=== PATIENT | female | born 1945 | race Caucasian/White ===

== ENCOUNTER 2016-06-27 14:04 | Inpatient (IN) ==
--- NOTE | 2016-06-27 15:16 | XRay Report ---
XR chest 1V Indication: Dizziness Comparison: None available Findings: The heart and mediastinum are normal in size and configuration. The pulmonary vascularity is normal in caliber. There is increased right midlung density. No other lung infiltrates, effusions, pneumothorax or other abnormality is demonstrated. Impression: Increased right midlung density, could indicate infiltrate. PROCEDURE INTERPRETED AT [facility] DEPARTMENT OF RADIOLOGY Final Report Signed by: Dr. Toby Walsh
--- NOTE | 2016-06-27 15:44 | Hospitalist History & Physical ---
<Fuad Ac - Last Filed: 06/27/16 15:57> Assessment and Plan (1) Hypertension Status: Acute Assessment and plan: Restart patient's home medicines. Monitor bp; pt currently stable at present. Current Visit: Yes (2) Diabetes Status: Acute Assessment and plan: Pt is diet controlled. Will order an A1c. Accuchecks achs. Diabetic diet. Current Visit: Yes (3) Closed right hip fracture Status: Acute Current Visit: Yes History of Present Illness Chief complaint: fall History of present illness: Ms. Benavidez is a 71 year old female with a history of htn, diet controlled diabetes, migrane, pneumonia and stomach lesion that presents to the ED for evaluation after a fall. She is a transfer from [facility]. Pt. states that she has been having frequent falls this week due to an inner ear infection. She was seen yesterday by Dr. Fagan and was prescribed some medication. Pt. states she got up to use the bathroom this morning around 2 am and fell on her right hip. Pt. denies hitting her head. Pt does having to having bruises on skin from recent falls. Pt. denies having any chest pain, shortness of breath, vomiting, diarrhea, or vision loss. Pt. states that she was slightly nauseous earlier today. Pt. denies any other issues in the ED at this time. Pt. will be admitted to the hospitalist service. Surgery will be consulted. Home Medications Medication Instructions Recorded Confirmed Type ALPRAZolam [Alprazolam] 1 mg PO DAILY PRN 06/27/16 06/27/16 History Cetirizine HCl [Cetirizine Tab] 10 mg PO DAILY 06/27/16 06/27/16 History Diazepam Tab [Valium Tab] 2 mg PO Q6H PRN 06/27/16 06/27/16 History HYDROcodone/ACETAMIN 7.5-325 1 tablet PO DAILY PRN 06/27/16 06/27/16 History [[place] 7.5-325] Methocarbamol Tab [Robaxin Tab] 500 mg PO TID PRN 06/27/16 06/27/16 History Propranolol Tab [Inderal Tab] 20 mg PO BID 06/27/16 06/27/16 History Zolpidem Tartrate [Ambien] 10 mg PO BEDTIME 06/27/16 06/27/16 History hydroCHLOROthiazide 25 mg PO QAM 06/27/16 06/27/16 History [Hydrochlorothiazide] Allergies Allergy/AdvReac Type Severity Reaction Status Date / Time Penicillins Allergy RASH Unverified 06/27/16 14:08 Medical,Surgical,& Family Hx - Medical History Cardio: History of: Hypertension Neurology: History of: Migraine Endocrine: History of: Diabetes Mellitus (NIDDM) - Family History Family History: noncontributory - Social History Smoking Status: Never smoker Frequency of Alcohol Use: None Type of Drug Use: None Marital Status: Lives With:: Spouse Functional capacity: independent ambulation - Constitutional Constitutional: Present: frequent falls, headache(s), weakness. Absent: fatigue - EENT Eyes: Absent: blurry vision Ears: Absent: decreased hearing Nose, mouth and throat: Present: headache(s). Absent: dysphagia - Cardiovascular Cardiovascular: Present: edema. Absent: chest pain at rest, dyspnea - Respiratory Respiratory: Absent: cough, wheezing - Gastrointestinal Gastrointestinal: Present: nausea. Absent: abdominal pain, vomiting - Genitourinary Genitourinary: Absent: dysuria, urinary frequency - Musculoskeletal Musculoskeletal: Present: limited range of motion, muscle cramps - Neurological Neurological: Absent: confusion, dizziness - Psychiatric Psychiatric: Absent: anxiety, confusion - Endocrine Endocrine: Present: cold intolerance Exam - Constitutional Vitals: Period Temp Pulse Resp BP Sys/Babb Pulse Ox Last 24 Hr 97.5 F 82 20 133/79 93 General appearance: normal weight, no acute distress - Head Head exam: Present: normal inspection, normocephalic - Eye Eye exam: Present: EOMI. Absent: scleral icterus Pupils: Present: COLE. Absent: dilated - Neck Neck exam: Present: normal inspection. Absent: thyromegaly - Respiratory Respiratory exam: Present: clear to auscultation bilaterally. Absent: rhonchi - Cardiovascular Cardiovascular exam: Present: regular rate and rhythm - GI/Abdominal GI/Abdominal exam: Present: normal bowel sounds, soft. Absent: tenderness - Extremities Exam Extremities exam: Present: normal capillary refill. Absent: full ROM, edema - Neurological Exam Neurological exam: Present: alert, oriented X3. Absent: normal gait - Psychiatric Psychiatric exam: Present: normal affect, normal mood - Skin Skin exam: Present: normal color, warm, dry <Lai,Hilaria - Last Filed: 06/27/16 16:32> Assessment and Plan - Time spent with patient Time spent with patient: Greater than 30 minutes (35 minutes) (1) Vertigo Status: Acute Assessment and plan: Continue Antivert. Consider F/U with ENT outpatient. Current Visit: Yes History of Present Illness Chief complaint: right leg pain s/p fall History of present illness: Ms. Benavidez is a 71 year old female with a history of HTN, migranes, DM2 who was recently diagnosed with vertigo currently treated with Valium and Antivert who was walking to the restroom this am around 2AM and stumbled over something on the ground. She fell down on her right side. She was unable to stand. She denies any chest pain, SOB, palpitations, nausea, vomiting, abdominal pain, dysuria, or hematuria. called 911 and she was taken to an OSH where she was diagnosed with hip fracture. She was transferred to [facility] for further evaluation and treatment. We were asked to admit for further evaluation and treatment. A 10-point review of systems was reviewed and was otherwise unremarkable. Medical,Surgical,& Family Hx - Surgical History Abdominal Surgeries: Surgical HX of: Appendectomy, Cholecystectomy Reproductive Surgeries: Surgical HX of;: Hysterectomy - Family History Family History: Reports;: Family Heart Disease (Father- [place]), Additional Family History (dementia, Parkinson's- Mother) - Social History Have you smoked in the last 12 months: No Exam - ENT ENT exam: Present: normal external ear exam (Effusion behind bilateral ear with opacities. Normal landmarks. ), other - Extremities Exam Extremities exam: Present: other (right leg has abducted towards the right and is slightly shorter than right. Good cap refill and sensation is intact.) Results - EKG EKG results: sinus rhythm (70 BPM with RAD and RSR' V1) - Impressions According to the Revised Cardiac Risk Index pt has at most a 0.9% risk of major cardiac event. - Diagnostic Findings Procedure: Chest x-ray: image reviewed by me, report reviewed by me (right middle lobe density. No cardiomegaly)
[2016-06-27 16:13] LABS: Basophils % 0.4 % (0.0-0.8); Eosinophils # 0.1 10*3/uL (0.0-0.87); Eosinophils % 0.9 % (0.00-10.9); Hematocrit 33.6 VOL% (35.7-47.0); Hemoglobin 11.6 GM/DL (12.0-16.0); Immature Granulocytes % 0.5 %; Immature Granulocytes Absolute 0.06 #; Lymphocytes # 1.8 10*3/uL (1.4-4.0); Lymphocytes % 16.3 % (21.3-54.2); Mean Corpuscular HGB Conc 34.5 GM/DL (32-36); Mean Corpuscular Hemoglobin 29 PG (27-34); Mean Corpuscular Volume 83.4 FL (87-102); Mean Platelet Volume 8.2 FL (9.6-12.0); Monocytes # 0.8 10*3/uL (0.11-0.8); Neutrophils # 8.3 10*3/uL (1.4-7.4); Neutrophils % 74.9 % (38.7-73.9); Platelet Count 220 T/CUMM (130-400); Red Blood Count 4.03 MC/CUMM (3.8-5.5); Red Cell Distribution Width 14.6 % (9.3-17.3); White Blood Count 11.1 T/CUMM (4-12)
[2016-06-27 16:22] LABS: PT Patient Result 10.5 SECS
[2016-06-27 16:35] LABS: Albumin 3.2 G/DL (3.4-5.0); Bilirubin,Total 0.6 MG/DL (0.2-1.0); Calcium 8.7 MG/DL (8.5-10.1); Free T4 (Free Thyroxine) 1.14 NG/DL (0.76-1.46); Osmolality,Calculated 258.8 MOS/KG (273-304); Potassium 2.8 MMOL/L (3.5-5.1); Total Protein 5.7 G/DL (6.4-8.3)
[2016-06-27 16:58] LABS: Magnesium 2.1 MG/DL (1.8-2.4); Phosphorous 3.1 MG/DL (2.5-4.9)
[2016-06-27 17:03] LABS: Amorphous Crystals,Urine Occasional /HPF (Few); Apearance,Urine CLEAR (Clear); Bilirubin,Urine Negative (Negative); Blood, Urine Negative (Negative); Glucose,Urine (UA) Negative (Negative); Ketones,Urine Negative (Negative); Mucus,Urine Occasional /LPF (Occasional); Nitrite,Urine Negative (Negative); Protein,Urine Negative; Squamous Epithelial Cell,Urine Occasional /HPF (0-10); Urine Color Yellow (Yellow); Urine Specific Gravity 1.006 (1.001-1.035); Urine Urobilinogen < 2.0 EU/DL (0.2-1.0)
[2016-06-27] MEDS ORDERED: ONDANSETRON 4 MG/2 ML VIAL IV PRN (17:55)
[2016-06-27] MEDS ORDERED: ACETAMINOPHEN 325 MG TABLET PO PRN (17:55)
[2016-06-27] MEDS ORDERED: DOCUSATE SODIUM 100 MG CAPSULE PO PRN (17:55)
[2016-06-27] MEDS ORDERED: GLUCAGON 1 MG VIAL IM PRN (17:55)
[2016-06-27] MEDS ORDERED: POTASSIUM CHLORIDE 20 MEQ TABLET PO PRN (17:55)
[2016-06-27] MEDS ORDERED: DEXTROSE 50% 25 GM/50 ML VIAL IV PRN (17:55)
[2016-06-27] MEDS: SODIUM CHLORIDE 0.9% 1,000 ML IV SCH (18:25)
[2016-06-27] MEDS: ENOXAPARIN 40 MG/0.4 ML SYRINGE SUBCUT SCH (21:11)
[2016-06-27] MEDS: PROPRANOLOL 20 MG TABLET PO SCH (21:15)
[2016-06-27] MEDS: ZALEPLON 5 MG CAPSULE PO SCH (21:16)
[2016-06-28 06:48] LABS: Basophils % 0.4 % (0.0-0.8); Eosinophils # 0.2 10*3/uL (0.0-0.87); Eosinophils % 1.5 % (0.00-10.9); Hematocrit 31.6 VOL% (35.7-47.0); Hemoglobin 10.6 GM/DL (12.0-16.0); Immature Granulocytes % 0.6 %; Immature Granulocytes Absolute 0.06 #; Lymphocytes # 1.4 10*3/uL (1.4-4.0); Lymphocytes % 14.2 % (21.3-54.2); Mean Corpuscular HGB Conc 33.5 GM/DL (32-36); Mean Corpuscular Hemoglobin 28 PG (27-34); Mean Corpuscular Volume 83.6 FL (87-102); Mean Platelet Volume 8.8 FL (9.6-12.0); Monocytes # 0.6 10*3/uL (0.11-0.8); Monocytes % 5.9 % (1.7-12.7); Neutrophils # 7.8 10*3/uL (1.4-7.4); Neutrophils % 77.4 % (38.7-73.9); Platelet Count 199 T/CUMM (130-400); Red Blood Count 3.78 MC/CUMM (3.8-5.5); Red Cell Distribution Width 14.6 % (9.3-17.3); White Blood Count 10.1 T/CUMM (4-12)
[2016-06-28 07:18] LABS: PT Patient Result 11.1 SECS
[2016-06-28 07:23] LABS: Albumin 2.9 G/DL (3.4-5.0); Calcium 8.2 MG/DL (8.5-10.1); Osmolality,Calculated 261.7 MOS/KG (273-304); Phosphorous 3.4 MG/DL (2.5-4.9); Potassium 2.9 MMOL/L (3.5-5.1)
[2016-06-28 07:24] LABS: Calcium 8.3 MG/DL (8.5-10.1); Magnesium 2.1 MG/DL (1.8-2.4); Osmolality,Calculated 261.7 MOS/KG (273-304)
--- NOTE | 2016-06-28 07:36 | EKG Report ---
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
[2016-06-28] MEDS ORDERED: VANCOMYCIN INJ 1,000 MG in SODIUM CHLORIDE 0.9% 250 ML IV ONE (07:58)
--- NOTE | 2016-06-28 07:58 | Orthopedic Consult Note ---
History of Present Illness Chief complaint: Right hip pain History of present illness: Ms. Benavidez is a 71 year old female who sustained a fall 2 nights ago. Stated this is a mechanical trip and fall. helped her into bed, she is unable to ambulate the next morning and EMS took her to [facility] where x-rays were taken showing a displaced right femoral neck fracture [facility]. She denies numbness or tingling. Denies loss of consciousness or head trauma. Complains of significant right hip pain which gets up to a 10/10 with motion or when she attempted to bear weight on her right upper extremity. She denies any other complaints. She typically ambulates without any assistive devices. Home Medications Medication Instructions Recorded Confirmed Type ALPRAZolam [Alprazolam] 1 mg PO DAILY PRN 06/27/16 06/27/16 History Cetirizine HCl [Cetirizine Tab] 10 mg PO DAILY 06/27/16 06/27/16 History Diazepam Tab [Valium Tab] 2 mg PO Q6H PRN 06/27/16 06/27/16 History HYDROcodone/ACETAMIN 7.5-325 1 tablet PO DAILY PRN 06/27/16 06/27/16 History [[place] 7.5-325] Methocarbamol Tab [Robaxin Tab] 500 mg PO TID PRN 06/27/16 06/27/16 History Propranolol Tab [Inderal Tab] 20 mg PO BID 06/27/16 06/27/16 History Zolpidem Tartrate [Ambien] 10 mg PO BEDTIME 06/27/16 06/27/16 History hydroCHLOROthiazide 25 mg PO QAM 06/27/16 06/27/16 History [Hydrochlorothiazide] Allergies Allergy/AdvReac Type Severity Reaction Status Date / Time Penicillins Allergy RASH Unverified 06/27/16 14:08 12 point system: reviewed and no additional remarkable complaints except as stated Medical,Surgical,& Family Hx - Medical History Cardio: History of: Hypertension Psychological: History of: Depression Neurology: History of: Migraine HEENT: History of: Eye Problem (reading and prescription glasses) Endocrine: History of: Diabetes Mellitus (NIDDM) Musculoskeletal: No history of: Amputation - Surgical History Cardiac Surgeries: Patient Denies: Femoral-Popliteal Bypass Graft, Cardiac Catheterization, Cardiac Surgery, Carotid Endarterectomy, Internal Defibrillator, Vascular Access Devices Thoracic Surgeries: Patient denies;: Organ Transplant, Lobectomy Neurologic Surgeries: Patient denies: Neurologic Surgery HEENT Surgeries: Patient denies: Carotid Endarterectomy, Eye Surgery, Thyroid Surgery, Tonsilectomy & Adenoidectomy Abdominal Surgeries: Surgical HX of: Appendectomy, Cholecystectomy Patient denies: Splenectomy Reproductive Surgeries: Surgical HX of;: Hysterectomy, Tubal Ligation Orthopedic Surgeries: Patient denies;: Implanted Devices, Orthopedic Surgery (scheduled in the AM) , Spinal Surgery, Total Hip Replacement, Total Knee Replacement - Family History Family History: Reports;: Family Diabetes (Father), Family Heart Disease (Father - [place]), Additional Family History (dementia, Parkinson's- Mother) - Social History Smoking Status: Never smoker Frequency of Alcohol Use: None Type of Drug Use: None Marital Status: Lives With:: Spouse Functional capacity: independent ambulation Exam - Constitutional Vitals: Period Temp Pulse Resp BP Sys/Babb Pulse Ox Last 24 Hr 97 F-99.1 F 62-76 12-23 131-155/70-77 95-100 General appearance: normal weight, no acute distress - Head Head exam: Present: normal inspection, normocephalic, atraumatic - Eye Eye exam: Present: EOMI Pupils: Present: COLE - ENT ENT exam: Present: normal exam - Neck Neck exam: Present: normal inspection - Respiratory Respiratory exam: Absent: accessory muscle use, wheezes - Cardiovascular Cardiovascular exam: Present: regular rate and rhythm - GI/Abdominal GI/Abdominal exam: Absent: distended, firm - Extremities Exam Extremities exam: Present: other (Bilateral upper extremity: Full active range of motion fingers wrist elbow shoulder. No pain, crepitus, deformity with palpation long bones and joints. Compartments soft. Sensation is intact. Pulses 2+.) - Expanded Right Lower Hip exam: Absent: normal inspection (Right lower extremity: Right leg is notably shorter than the left in the supine position. She is full active range of motion foot and ankle. Cap refill brisk. Pulses 2+ dorsal pedal posterior tibial. Sensation is intact all dermatomes distally. Logrolled not performed due to known fracture) Left Lower Hip exam: Present: normal inspection (Left lower extremity: Nontender to palpation, full active range of motion foot and ankle. Cap refill brisk. Pulses 2+. Sensation intact) - Neurological Exam Neurological exam: Present: alert, oriented X3, CN II-XII intact - Psychiatric Psychiatric exam: Present: normal affect, normal mood - Skin Skin exam: Present: normal color Results - Labs CBC & BMP: 06/28/16 06:38 06/28/16 06:38 Lab Results: I have reviewed the past 24 hour labs - Diagnostic Findings Procedure: X-ray: image reviewed by me, report reviewed by me Assessment and Plan (1) Anemia Status: Acute Current Visit: Yes (2) Closed right hip fracture Status: Acute Assessment and plan: Discussed her right displaced femoral neck fracture and her anemia. Because the fracture is displaced, recommend proceeding with hip replacement. Because of her relatively young age and high activity level I recommend total hip replacement. We discussed the surgery in detail as well as anterior total hip arthroplasty and the dislocation precautions. We discussed the risks and benefits of surgery as well. Benefit of surgery is to be able to ambulate and improve her function decrease her pain. Risks of surgery include but not limited to infection, bleeding, neurovascular injury both local and remote, hardware failure, fracture, need for further surgery, dislocation, leg length inequality , and other unforeseen complications. We also discussed risk of anesthesia include heart attack, stroke, . She gave full understanding to the risks and benefits, and agreed to proceed with surgical intervention with right total hip arthroplasty. We also discussed her anemia and the possibility of her needing blood transfusion following surgery Site was verified with the patient right leg was marked with yes my initials. Because of her allergy to penicillin, we will start vancomycin 1 g as soon as possible to have the antibiotic completed prior to the start of surgery. Current Visit: Yes
[2016-06-28] MEDS: PROPRANOLOL 20 MG TABLET PO SCH ×2 (08:44→20:13)
[2016-06-28] MEDS: CETIRIZINE 10 MG TABLET PO SCH (08:45)
[2016-06-28] MEDS: PANTOPRAZOLE 40 MG TABLET PO SCH (08:45)
--- NOTE | 2016-06-28 08:46 | Discharge Summary ---
Diagnosis - Discharge Diagnosis (1) Anemia Status: Acute (2) Closed right hip fracture Status: Acute Specialty Discharge - Follow Up or Referrals - Speciality Discharge Instructions Orthopedic Instructions: Right hip anterior precautions. Keep dressing intact for 7 days then okay to leave open to air Discharge Plan - Discharge Medications No Action Zolpidem Tartrate [Ambien] 10 mg PO BEDTIME RX: ALPRAZolam [Alprazolam] 1 mg PO DAILY PRN PRN Reason: Anxiety Diazepam Tab [Valium Tab] 2 mg PO Q6H PRN PRN Reason: inner ear Cetirizine HCl [Cetirizine Tab] 10 mg PO DAILY RX: hydroCHLOROthiazide [Hydrochlorothiazide] 25 mg PO QAM HYDROcodone/ACETAMIN 7.5-325 [[place] 7.5-325] 1 tablet PO DAILY PRN PRN Reason: Pain Methocarbamol Tab [Robaxin Tab] 500 mg PO TID PRN PRN Reason: Muscle Spasm Propranolol Tab [Inderal Tab] 20 mg PO BID - Follow Up or Referral Follow Up: Philippe Cadet Jr., MD [Physician] - - Forms/Instructions Exam - Constitutional Vitals: Period Temp Pulse Resp BP Sys/Babb Pulse Ox Last 24 Hr 97 F-99.1 F 62-76 12-23 131-155/70-77 95-100 Discharge Results Procedures and tests throughout hospitalization: Pending Orders 06/28/16 XR hip 2V RT Routine 06/29/16 04:00 Basic Metabolic Panel IN AM Comp Blood Count Auto Diff IN AM Labs on day of discharge: Labs from last 24 hours 06/28/16 06/28/16 06/28/16 06:38 06:38 06:38 WBC RBC Hgb Hct MCV MCH MCHC RDW Plt Count MPV Neut % (Auto) Lymph % (Auto) Coleman % (Auto) Eos % (Auto) Baso % (Auto) Neut # (Auto) Lymph # (Auto) Coleman # (Auto) Eos # (Auto) Baso # (Auto) Immature Gran % Nucleated RBC % Immature Gran # Nucleated RBCs # INR 1.0 PT Patient/Control Mix 11.1 Sodium 131 L Potassium 2.9 L Chloride 93 L Carbon Dioxide 29 Anion Gap 11.9 BUN 11 Creatinine 0.60 GFR Calculation 107 BUN/Creatinine Ratio 18.00 Glucose 108 H POC Glucose Hemoglobin A1c Calculated Osmolality 261.7 L Calcium 8.2 L Phosphorus 3.4 Magnesium Total Bilirubin AST ALT Alkaline Phosphatase B-Natriuretic Peptide 54 Total Protein Albumin 2.9 L Globulin Albumin/Globulin Ratio 25-OH Vitamin D Total Free T4 Urine Color Urine Appearance Urine pH Ur Specific [place] Urine Protein Urine Glucose (UA) Urine Ketones Urine Blood Urine Nitrate Urine Bilirubin Urine Urobilinogen Urine Leukocytes Ur Squamous Epith Cells Amorphous Crystals Urine Mucus Ur Culture Indicated? 06/28/16 06/28/16 06/28/16 06:38 06:38 06:37 WBC 10.1 RBC 3.78 L Hgb 10.6 L Hct 31.6 L MCV 83.6 L MCH 28 MCHC 33.5 RDW 14.6 Plt Count 199 MPV 8.8 L Neut % (Auto) 77.4 H Lymph % (Auto) 14.2 L Coleman % (Auto) 5.9 Eos % (Auto) 1.5 Baso % (Auto) 0.4 Neut # (Auto) 7.8 H Lymph # (Auto) 1.4 Coleman # (Auto) 0.6 Eos # (Auto) 0.2 Baso # (Auto) 0.0 Immature Gran % 0.6 Nucleated RBC % 0.0 Immature Gran # 0.06 Nucleated RBCs # 0.00 INR PT Patient/Control Mix Sodium 131 L Potassium 3.0 L Chloride 93 L Carbon Dioxide 29 Anion Gap 12.0 BUN 11 Creatinine 0.60 GFR Calculation 107 BUN/Creatinine Ratio 18.00 Glucose 108 H POC Glucose Hemoglobin A1c 6.3 Calculated Osmolality 261.7 L Calcium 8.3 L Phosphorus Magnesium 2.1 Total Bilirubin AST ALT Alkaline Phosphatase B-Natriuretic Peptide Total Protein Albumin Globulin Albumin/Globulin Ratio 25-OH Vitamin D Total Free T4 Urine Color Urine Appearance Urine pH Ur Specific [place] Urine Protein Urine Glucose (UA) Urine Ketones Urine Blood Urine Nitrate Urine Bilirubin Urine Urobilinogen Urine Leukocytes Ur Squamous Epith Cells Amorphous Crystals Urine Mucus Ur Culture Indicated? 06/27/16 06/27/16 06/27/16 18:07 16:41 16:06 WBC RBC Hgb Hct MCV MCH MCHC RDW Plt Count MPV Neut % (Auto) Lymph % (Auto) Coleman % (Auto) Eos % (Auto) Baso % (Auto) Neut # (Auto) Lymph # (Auto) Coleman # (Auto) Eos # (Auto) Baso # (Auto) Immature Gran % Nucleated RBC % Immature Gran # Nucleated RBCs # INR PT Patient/Control Mix Sodium Potassium Chloride Carbon Dioxide Anion Gap BUN Creatinine GFR Calculation BUN/Creatinine Ratio Glucose POC Glucose 100 Hemoglobin A1c Calculated Osmolality Calcium Phosphorus Magnesium Total Bilirubin AST ALT Alkaline Phosphatase B-Natriuretic Peptide Total Protein Albumin Globulin Albumin/Globulin Ratio 25-OH Vitamin D Total 11.1 Free T4 Urine Color Yellow Urine Appearance Clear Urine pH 7.0 Ur Specific [place] 1.006 Urine Protein Negative Urine Glucose (UA) Negative Urine Ketones Negative Urine Blood Negative Urine Nitrate Negative Urine Bilirubin Negative Urine Urobilinogen < 2.0 H Urine Leukocytes Negative Ur Squamous Epith Cells Occasional Amorphous Crystals Occasional Urine Mucus Occasional Ur Culture Indicated? Not indicated 06/27/16 06/27/16 06/27/16 16:06 16:06 16:06 WBC RBC Hgb Hct MCV MCH MCHC RDW Plt Count MPV Neut % (Auto) Lymph % (Auto) Coleman % (Auto) Eos % (Auto) Baso % (Auto) Neut # (Auto) Lymph # (Auto) Coleman # (Auto) Eos # (Auto) Baso # (Auto) Immature Gran % Nucleated RBC % Immature Gran # Nucleated RBCs # INR 1.0 PT Patient/Control Mix 10.5 Sodium 130 L Potassium 2.8 L Chloride 91 L Carbon Dioxide 32 Anion Gap 9.8 BUN 9 Creatinine 0.80 GFR Calculation 85 BUN/Creatinine Ratio 11.00 Glucose 104 POC Glucose Hemoglobin A1c Calculated Osmolality 258.8 L Calcium 8.7 Phosphorus 3.1 Magnesium 2.1 Total Bilirubin 0.60 AST 14 ALT 20 Alkaline Phosphatase 94 B-Natriuretic Peptide Total Protein 5.7 L Albumin 3.2 L Globulin 2.5 Albumin/Globulin Ratio 1.2 25-OH Vitamin D Total Free T4 1.14 Urine Color Urine Appearance Urine pH Ur Specific [place] Urine Protein Urine Glucose (UA) Urine Ketones Urine Blood Urine Nitrate Urine Bilirubin Urine Urobilinogen Urine Leukocytes Ur Squamous Epith Cells Amorphous Crystals Urine Mucus Ur Culture Indicated? 06/27/16 16:06 WBC 11.1 RBC 4.03 Hgb 11.6 L Hct 33.6 L MCV 83.4 L MCH 29 MCHC 34.5 RDW 14.6 Plt Count 220 MPV 8.2 L Neut % (Auto) 74.9 H Lymph % (Auto) 16.3 L Coleman % (Auto) 7.0 Eos % (Auto) 0.9 Baso % (Auto) 0.4 Neut # (Auto) 8.3 H Lymph # (Auto) 1.8 Coleman # (Auto) 0.8 Eos # (Auto) 0.1 Baso # (Auto) 0.0 Immature Gran % 0.5 Nucleated RBC % 0.0 Immature Gran # 0.06 Nucleated RBCs # 0.00 INR PT Patient/Control Mix Sodium Potassium Chloride Carbon Dioxide Anion Gap BUN Creatinine GFR Calculation BUN/Creatinine Ratio Glucose POC Glucose Hemoglobin A1c Calculated Osmolality Calcium Phosphorus Magnesium Total Bilirubin AST ALT Alkaline Phosphatase B-Natriuretic Peptide Total Protein Albumin Globulin Albumin/Globulin Ratio 25-OH Vitamin D Total Free T4 Urine Color Urine Appearance Urine pH Ur Specific [place] Urine Protein Urine Glucose (UA) Urine Ketones Urine Blood Urine Nitrate Urine Bilirubin Urine Urobilinogen Urine Leukocytes Ur Squamous Epith Cells Amorphous Crystals Urine Mucus Ur Culture Indicated? DS: Provider Date of admission: 06/27/16 15:24 Primary care physician: . No PCP Attending physician on admission: Hilaria Lai MD Consults: 06/27/16 17:55 Consult to Physician [CONS] Routine Comment: Consulting Provider: Gerry Clement Person Notified: Dr. Clement Date Notified: 06/27/16 Time Notified: 18:05 Discharging clinician: Gerry Clement DO
[2016-06-28] MEDS ORDERED: KETOROLAC 30 MG/1 ML VIAL ONE ×2 (08:50→10:03)
[2016-06-28] MEDS ORDERED: ETOMIDATE 20 MG/10 ML VIAL IV ONE (08:50)
[2016-06-28] MEDS ORDERED: LIDOCAINE 2% 5 ML VIAL ONE (08:50)
[2016-06-28] MEDS ORDERED: PHENYLEPHRINE 1 MG/10 ML SYRINGE IV ONE (08:50)
[2016-06-28] MEDS ORDERED: PROPOFOL 200 MG/20 ML VIAL IV ONE (08:50)
[2016-06-28] MEDS ORDERED: ONDANSETRON 4 MG/2 ML VIAL ONE (08:50)
[2016-06-28] MEDS ORDERED: VANCOMYCIN 1,000 MG VIAL ONE (10:01)
[2016-06-28] MEDS ORDERED: ROPIVACAINE 0.5% 30 ML VIAL ONE (10:01)
[2016-06-28] MEDS ORDERED: MORPHINE 10 MG/10 ML VIAL ONE (10:07)
[2016-06-28] MEDS ORDERED: SODIUM CHLORIDE 0.9% 250 ML IV PRN (10:58)
[2016-06-28] MEDS ORDERED: TISSUE ADHESIVE 1 EACH APPLICATOR TOP ONE (12:06)
--- NOTE | 2016-06-28 12:31 | Operative Note ---
Date of procedure: 06/28/16 Pre-op diagnosis: Right femoral neck fracture Post-op diagnosis: same Procedure: Operative indications: 71 female with a displaced right femoral neck fracture Preoperative diagnosis: Displaced right femoral neck fracture Postoperative diagnosis: Same Procedures: Right anterior total hip arthroplasty (metal on polyethylene) for femoral neck fracture Interpretation of fluoroscopy by surgeon Surgeon: Gerry Clement DO Estimated blood loss: 700 mL Antibiotics: Vancomycin 1 g IV preoperatively Vancomycin 1 g powder placed in the joints and subcutaneous tissue at the conclusion of surgery Specimens: Fractured femoral head Complications: None Implants: Depuy Counts: Correct 3 Operative findings: Displaced right femoral neck fracture There was a substantial amount of bruising/bleeding from the fracture site as well as from the acetabulum during reaming to the patient recently being on Lovenox and from her femoral neck fracture Description of procedure: After adequate anesthesia was obtained, patient was placed on the [place] table. Right leg was then prepped and draped in usual sterile orthopedic fashion. Timeout was taken indicating correct patient, site, surgery, that all his meds and implants were available and antibiotics were given preoperatively. A 10 cm incision was made 3 cm lateral and 2 cm distal to the ASIS. Careful dissection was carried down to the fascial layer. This superficial lateral femoral cutaneous nerve branch was visualized and protected throughout the surgery. Fascia was split in line with the incision. Anterior interval was identified. Coban was placed around superior femoral neck. A single branch of the lateral circumflex vessels were identified and cauterized. The cobra was then placed in the inferior neck. Reflect a head of rectus was elevated off the femoral capsule. Anterior acetabular retractor was carefully placed. T capsulotomy incision was performed in superior and inferior limbs were tagged with Tycron suture. Cover retractors in place around the femoral neck. Fracture was identified. Femoral head was removed in size and the back table. Ligamentum teres was excised. Acetabulum was reamed in a stepwise fashion up to a 52 mm reamer. Reaming depth and position was verified visually as well as under direct fluoroscopic imaging. Acetabular shell was then inserted and impacted into position and depth and placement verified under fluoroscopy. A single 35 mm screw was placed in the acetabular column. Anterior high wall liner was then applied with a high wall in the anterior position and impacted. The leg was then externally rotated extended in a deducted. Posterior capsule was elevated off of the undersurface of the greater trochanter to allow for adequate visualization. Canal finder was utilized to gain entrance to the femoral canal. Femur was then broached in stepwise fashion up to a size 5 broach. Calcar was then plained. A standard offset neck and a minus head was then applied and reduced. There is noted to be slight shock within the femoral component. Fluoroscopic images were taken in leg length measured based on the trans-ischial line and the right lesser trochanter was found to be slightly shorter than the left. Trial implants were then removed and final implants inserted with a size 5 standard offset stem and a +1.5 x 36 mm head. Femoral head was reduced Local injection was then performed with a combination of 30 cc of 0.5% ropivacaine, 10 mg Duramorph, 30 mg Toradol, 20 cc injectable normal saline Incision was then miranda irrigated with normal saline. Vancomyocin powder was then placed inside the joint and the capsule was closed with a combination of # 5 and #2 Tycron suture in an anatomic anabaptist of the joint capsule. Make myosin powder then placed in the deep layer and the fascia was closed with running #1 Vicryl. Vancomycin then placed in the cutaneous layer and the subcutaneous layer was closed with combination of 0 and 3-0 Vicryl. Subcuticular stitch performed with 30V lock. Dermabond applied incision. Dressing applied with silver impregnated dressing. Patient was then opened by anesthesia and taken the PACU in stable condition Disposition: She will be transferred to the floor when meets criteria as per anesthesia. Start ambulating today if she is awake and alert with assistance. Anterior hip precautions. DVT prophylaxis with Lovenox while in the hospital and aspirin upon discharge if she is active and mobile and meets criteria. Pain control with p.o. and IV medication Implants: HOTELbeatuy [place] 52 mm acetabular shell with a 35 mm screw and hole eliminator 10 high wall liner with high wall placed anterior Size 5 standard offset femoral stem 36 mm +1.5 metal femoral head Anesthesia: spinal Surgeon / Physician: Gerry Clement Estimated blood loss: other (700ml) Disposition: PACU Results - Labs CBC & BMP: 06/28/16 06:38 06/28/16 06:38 Discharge Plan - Discharge Medications No Action Zolpidem Tartrate [Ambien] 10 mg PO BEDTIME ALPRAZolam [Alprazolam] 1 mg PO DAILY PRN PRN Reason: Anxiety Diazepam Tab [Valium Tab] 2 mg PO Q6H PRN PRN Reason: inner ear Cetirizine HCl [Cetirizine Tab] 10 mg PO DAILY hydroCHLOROthiazide [Hydrochlorothiazide] 25 mg PO QAM HYDROcodone/ACETAMIN 7.5-325 [[place] 7.5-325] 1 tablet PO DAILY PRN PRN Reason: Pain Methocarbamol Tab [Robaxin Tab] 500 mg PO TID PRN PRN Reason: Muscle Spasm Propranolol Tab [Inderal Tab] 20 mg PO BID - Follow Up or Referral Follow Up: Philippe Cadet Jr., MD [Physician] - - Forms/Instructions
--- NOTE | 2016-06-28 12:36 | Anesthesia Post-Op ---
Anesthesia Post OP - Post Ansesthetic Evaluation Patient seen in post op: Yes Resp: within normal limits CV: within normal limits Mental: within normal limits Temp: within normal limits [id number]: within normal limits Nausea and Vomiting: within normal limits Pain: within normal limits
[2016-06-28] MEDS ORDERED: MIDAZOLAM 2 MG/2 ML VIAL ONE ×2 (12:40)
[2016-06-28] MEDS ORDERED: SODIUM CHLORIDE 0.9% 2,000 ML IV ONE (12:41)
[2016-06-28] MEDS ORDERED: fentaNYL 100 MCG/2 ML VIAL ONE (12:41)
[2016-06-28] MEDS ORDERED: LACTATED RINGERS 2,000 ML IV ONE (12:41)
[2016-06-28] MEDS ORDERED: MAGNESIUM HYDROXIDE SUSP 30 ML UDCUP PO PRN (13:42)
[2016-06-28] MEDS ORDERED: diphenhydrAMINE CAP 25 MG CAPSULE PO PRN (13:42)
[2016-06-28] MEDS: SODIUM CHLORIDE 0.9% 1,000 ML IV SCH ×2 (14:10→23:49)
[2016-06-28] MEDS: VANCOMYCIN INJ 1,000 MG in SODIUM CHLORIDE 0.9% 250 ML IV SCH (14:12)
--- NOTE | 2016-06-28 14:18 | XRay Report ---
XR pelvis AP 1 or 2 Views Indication: Pain, postoperative evaluation Comparison: None available Findings: Right hip arthroplasty has been performed and appears within normal limits. No periprosthetic fracture seen. Impression: Hip arthroplasty appears within normal limits. PROCEDURE INTERPRETED AT [facility] DEPARTMENT OF RADIOLOGY Final Report Signed by: Dr. Toby Walsh
[2016-06-28] MEDS: oxyCODONE/ACETAMINOPHEN 5-325 MG TABLET PO PRN ×2 (14:19→20:14)
--- NOTE | 2016-06-28 15:55 | Hospitalist Progress Note ---
Assessment and Plan (1) Closed right hip fracture Status: Acute Assessment and plan: The patient had right total hip arthroplasty today and will continue on standard postoperative pathway. No complications are identified. Current Visit: Yes Qualifiers: Encounter type: initial encounter Qualified Code(s): S72.001A - Fracture of unspecified part of neck of right femur, initial encounter for closed fracture (2) Hypertension Status: Acute Current Visit: Yes (3) Diabetes Status: Acute Current Visit: Yes Hospitalist: Subjective Interval history: Mrs. Benavidez had right total hip arthroplasty by Dr. Clement today. The patient says that since surgery she has less pain in the right hip and is able to move her ankles freely without having pain. The patient appears relieved. The patient does not complain of shortness of breath or palpitations. Her is at the bedside and we reviewed her plan of care. Exam - Constitutional Vitals: Period Temp Pulse Resp BP Sys/Babb Pulse Ox Last 24 Hr 97 F-100.7 F 62-78 12-23 105-155/51-77 94-100 Exam: Constitutional System: Mild distress on account of right hip pain. No tremulousness. Head: Normocephalic, atraumatic. Ears, Nose and Throat System: No evidence of Otitis or Mastoiditis. No epistaxis or discharge Eyes System: Pupils equal, round, and reactive. Extraocular muscles intact. Neck: Supple, without adenopathy, No jugular venous distention. No thyromegaly , neck mass, or prior surgery apparent. Respiratory System: Chest clear to auscultation. Cardiovascular System: Heart with regular rate and rhythm. No murmur. GI System: Abdomen soft, nontender. Normo active bowel sounds present. Results - Labs CBC & BMP: 06/28/16 06:38 06/28/16 06:38 Lab Results: I have reviewed the past 24 hour labs Specialty Discharge - Follow Up or Referrals Follow up with: Philippe Cadet Jr., MD [Physician] -
--- NOTE | 2016-06-28 16:21 | ECHO Report ---
Vito Benavidez Exam Date: 06/28/2016 08:31 Referring Physician: Technologist: Lisbet Butler Age: 71 Ht (in): 68 Wt (lb): 180 Gender: F Exam Location: [facility] Echo Indications: pre op Closed right hip fracture, HTN, Diabetes, vertigo BP: 146 / 70 HR: 65 Rhythm: Sinus Technical Quality: Technically difficult study IMPRESSIONS 1. This is a limited study. 2. Left ventricle is probably normal size and ejection fraction 55%. There is mild concentric left ventricular pressure and mild diastolic dysfunction. 3. Other cardiac chambers normal size. 4. Mitral valve may be minimally thickened and sclerotic. 5. Other cardiac valves are not well visualized. 6. There is no gross Doppler abnormalities of any of the cardiac valves. MEASUREMENTS (Male / Female) Normal Values 2D ECHO LV Diastolic Diameter PLAX 3.6 cm 4.2 - 5.9 / 3.9 - 5.3 cm LV Systolic Diameter PLAX 2.6 cm LV Fractional Shortening PLAX 26.5 % IVS Diastolic Thickness 1.7 cm 0.6 - 1.0 / 0.6 - 0.9 cm LVPW Diastolic Thickness 1.2 cm 0.6 - 1.0 / 0.6 - 0.9 cm RV Internal Dim ED PLAX 3.1 cm Aortic Root Diameter 2.5 cm LA Systolic Diameter LX 3.6 cm 3.0 - 4.0 / 2.7 - 3.8 cm DOPPLER TR Peak Velocity 137.0 cm/s TR Peak Gradient 7.5 mmHg FINDINGS Left Ventricle Left ventricle is normal size with probably normal ejection fraction around 55%. There is mild concentric left ventricular hypertrophy. Mild/grade 1 diastolic dysfunction is present. Right Ventricle Normal right ventricular size and systolic function. Right Atrium Normal right atrial size. Left Atrium Normal left atrial size. Mitral Valve Mild mitral valve sclerosis. Trace mitral valve regurgitation. Aortic Valve Aortic valve is not relieved adequately visualized to comment on. Doppler appears to be normal. Tricuspid Valve Tricuspid valve is not well visualized but probably grossly normal. There is trace regurgitation present. There is no evidence of elevated right-sided pressures. Pulmonic Valve Morphologically normal pulmonic valve. Pericardium No pericardial effusion. Aorta Normal size aortic root and proximal ascending aorta. Jose Evans MD (Electronically Signed) Final Date: 28 Jun 2016 16:19
[2016-06-28] MEDS: ZALEPLON 5 MG CAPSULE PO SCH (20:13)
[2016-06-28] MEDS: ENOXAPARIN 40 MG/0.4 ML SYRINGE SUBCUT SCH (20:14)
[2016-06-29] MEDS: VANCOMYCIN INJ 1,000 MG in SODIUM CHLORIDE 0.9% 250 ML IV SCH (01:35)
[2016-06-29] MEDS: oxyCODONE/ACETAMINOPHEN 5-325 MG TABLET PO PRN ×3 (04:20→21:19)
[2016-06-29 05:14] LABS: Basophils % 0.3 % (0.0-0.8); Eosinophils # 0.2 10*3/uL (0.0-0.87); Eosinophils % 1.5 % (0.00-10.9); Hematocrit 30.6 VOL% (35.7-47.0); Hemoglobin 10.2 GM/DL (12.0-16.0); Immature Granulocytes % 0.6 %; Immature Granulocytes Absolute 0.06 #; Lymphocytes # 1.5 10*3/uL (1.4-4.0); Lymphocytes % 14.8 % (21.3-54.2); Mean Corpuscular HGB Conc 33.3 GM/DL (32-36); Mean Corpuscular Hemoglobin 30 PG (27-34); Mean Corpuscular Volume 88.7 FL (87-102); Mean Platelet Volume 9.3 FL (9.6-12.0); Monocytes # 0.8 10*3/uL (0.11-0.8); Monocytes % 8.4 % (1.7-12.7); Neutrophils # 7.4 10*3/uL (1.4-7.4); Neutrophils % 74.4 % (38.7-73.9); Platelet Count 150 T/CUMM (130-400); Red Blood Count 3.45 MC/CUMM (3.8-5.5); Red Cell Distribution Width 14.4 % (9.3-17.3); White Blood Count 9.9 T/CUMM (4-12)
[2016-06-29 05:52] LABS: Calcium 7.4 MG/DL (8.5-10.1); Potassium 3.3 MMOL/L (3.5-5.1)
--- NOTE | 2016-06-29 08:40 | Orthopedic Progress Note ---
Orthopedics - Subjective Interval history: Mrs. Benavidez is comfortable. She has no complaints. She is ready to mobilize. Dressing clean, dry and intact. She can flex extend her toes and ankles. EHL is 5 out of 5. Sensations intact to light touch. 2+ dorsalis pedis pulse. Plan: Mobilize with physical therapy. Stop Pugh and IV fluids. Plan discharge home with home health. Exam - Constitutional Vitals: Period Temp Pulse Resp BP Sys/Babb Pulse Ox Last 24 Hr 97.5 F-100.7 F 69-87 16-22 104-142/48-76 92-100 Results - Labs CBC & BMP: 06/29/16 04:28 06/29/16 04:28 Specialty Discharge - Follow Up or Referrals Follow up with: Philippe Cadet Jr., MD [Physician] -
[2016-06-29] MEDS: PROPRANOLOL 20 MG TABLET PO SCH ×2 (08:56→21:19)
[2016-06-29] MEDS: CETIRIZINE 10 MG TABLET PO SCH (08:56)
[2016-06-29] MEDS: PANTOPRAZOLE 40 MG TABLET PO SCH (08:56)
--- NOTE | 2016-06-29 15:58 | Hospitalist Progress Note ---
Assessment and Plan (1) Closed right hip fracture Status: Acute Assessment and plan: The patient had right total hip arthroplasty yesterday and will continue on standard postoperative pathway. No complications are identified. Discharge plan was discussed with the housing case manager and possibilities for disposition including home with home health and swing bed at [facility]. Current Visit: Yes Qualifiers: Encounter type: initial encounter Qualified Code(s): S72.001A - Fracture of unspecified part of neck of right femur, initial encounter for closed fracture (2) Hypertension Status: Acute Current Visit: Yes (3) Diabetes Status: Acute Current Visit: Yes Hospitalist: Subjective Interval history: The patient is up to chair. She is cooperative with physical therapy. The patient wishes to be discharged home with home health and we are also evaluating the patient for possible transfer to swing bed in [facility]. Exam - Constitutional Vitals: Period Temp Pulse Resp BP Sys/Babb Pulse Ox Last 24 Hr 97.5 F-99.8 F 70-87 16-22 104-142/47-76 91-98 Exam: Constitutional System: Mild distress on account of right hip pain. No tremulousness. Head: Normocephalic, atraumatic. Ears, Nose and Throat System: No evidence of Otitis or Mastoiditis. No epistaxis or discharge Eyes System: Pupils equal, round, and reactive. Extraocular muscles intact. Neck: Supple, without adenopathy, No jugular venous distention. No thyromegaly , neck mass, or prior surgery apparent. Respiratory System: Chest clear to auscultation. Cardiovascular System: Heart with regular rate and rhythm. No murmur. GI System: Abdomen soft, nontender. Normo active bowel sounds present. Results - Labs CBC & BMP: 06/29/16 04:28 06/29/16 04:28 Lab Results: I have reviewed the past 24 hour labs Specialty Discharge - Follow Up or Referrals Follow up with: Philippe Cadet Jr., MD [Physician] -
[2016-06-29] MEDS: CELECOXIB 200 MG CAPSULE PO SCH (18:15)
[2016-06-29] MEDS: ENOXAPARIN 40 MG/0.4 ML SYRINGE SUBCUT SCH (21:19)
[2016-06-29] MEDS: ZALEPLON 5 MG CAPSULE PO SCH (21:19)
[2016-06-30 04:17] LABS: Basophils % 0.4 % (0.0-0.8); Eosinophils # 0.2 10*3/uL (0.0-0.87); Eosinophils % 1.8 % (0.00-10.9); Hematocrit 29.8 VOL% (35.7-47.0); Immature Granulocytes % 1.4 %; Immature Granulocytes Absolute 0.13 #; Lymphocytes # 1.9 10*3/uL (1.4-4.0); Lymphocytes % 19.8 % (21.3-54.2); Mean Corpuscular HGB Conc 33.6 GM/DL (32-36); Mean Corpuscular Hemoglobin 29 PG (27-34); Mean Corpuscular Volume 87.1 FL (87-102); Mean Platelet Volume 9.8 FL (9.6-12.0); Monocytes # 0.8 10*3/uL (0.11-0.8); Monocytes % 8.9 % (1.7-12.7); Neutrophils # 6.4 10*3/uL (1.4-7.4); Neutrophils % 67.7 % (38.7-73.9); Platelet Count 150 T/CUMM (130-400); Red Blood Count 3.42 MC/CUMM (3.8-5.5); Red Cell Distribution Width 14.2 % (9.3-17.3); White Blood Count 9.5 T/CUMM (4-12)
--- NOTE | 2016-06-30 07:18 | Orthopedic Progress Note ---
Orthopedics - Subjective Interval history: Mrs. Benavidez was able to ambulate in the room yesterday. She has not been in the [place]. She has no new complaints. Right lower extremity shows dressing is clean, dry and intact. Right lower extremities neurovascularly unchanged. Plan: Continue therapy. Plan discharge home tomorrow with home health. Exam - Constitutional Vitals: Period Temp Pulse Resp BP Sys/Babb Pulse Ox Last 24 Hr 97.9 F-99.2 F 63-80 16-20 93-149/47-69 91-97 Results - Labs CBC & BMP: 06/30/16 03:11 06/29/16 04:28 Specialty Discharge - Follow Up or Referrals Follow up with: Philippe Cadet Jr., MD [Physician] -
[2016-06-30] MEDS: PANTOPRAZOLE 40 MG TABLET PO SCH (08:59)
[2016-06-30] MEDS: CETIRIZINE 10 MG TABLET PO SCH (08:59)
[2016-06-30] MEDS: CELECOXIB 200 MG CAPSULE PO SCH (08:59)
[2016-06-30] MEDS: PROPRANOLOL 20 MG TABLET PO SCH (08:59)
[2016-06-30] MEDS: oxyCODONE/ACETAMINOPHEN 5-325 MG TABLET PO PRN (11:12)
--- NOTE | 2016-06-30 13:52 | Discharge Summary ---
Hospital Course - Hospital Course Hospital Course: The patient was admitted to the hospital after a fall and required total hip arthroplasty on the right. The patient had excellent relief of her pain symptom and was eager to return to ambulation. The patient was ambulated in the hallway with the aid of a walker prior to discharge home. I coordinated care with Dr. Cadet at the time of discharge and have his approval. He requested that the patient take full aspirin once daily for 21 days to reduce the risk of deep vein thrombosis postoperatively. The patient will have home health physical therapy. I coordinated care with the nurse case manager. On the date of discharge the chest is clear and abdomen soft. Heart has regular rate and rhythm. Discharge time including arranging discharge and coordinating care required 32 minutes. - Time spent with patient Time with patient DS: Greater than 30 minutes Diagnosis - Discharge Diagnosis (1) Closed right hip fracture Status: Acute (2) Hypertension Status: Chronic (3) Diabetes Status: Chronic Specialty Discharge - Follow Up or Referrals Follow up with: Philippe Cadet Jr., MD [Physician] - 1 Month Discharge Plan - Discharge Data Disposition: Home Health Service Condition at Discharge: Stable Discharge Diet: diabetic diet Activity: as per physical therapy - Discharge Medications New Aspirin Tab 325 mg PO DAILY #21 tablet oxyCODONE/ACETAMINOPHEN 5-325 [Percocet 5-325] 1 tablet PO Q4H PRN #40 tablet PRN Reason: Pain Moderate (4-7) Continue Zolpidem Tartrate [Ambien] 10 mg PO BEDTIME ALPRAZolam [Alprazolam] 1 mg PO DAILY PRN PRN Reason: Anxiety Diazepam Tab [Valium Tab] 2 mg PO Q6H PRN PRN Reason: inner ear Cetirizine HCl [Cetirizine Tab] 10 mg PO DAILY hydroCHLOROthiazide [Hydrochlorothiazide] 25 mg PO QAM HYDROcodone/ACETAMIN 7.5-325 [[place] 7.5-325] 1 tablet PO DAILY PRN PRN Reason: Pain Methocarbamol Tab [Robaxin Tab] 500 mg PO TID PRN PRN Reason: Muscle Spasm Propranolol Tab [Inderal Tab] 20 mg PO BID - Follow Up or Referral Follow Up: Philippe Cadet Jr., MD [Physician] - 1 Month - Forms/Instructions Instructions: Total Hip Replacement (DC) Exam - Constitutional Vitals: Period Temp Pulse Resp BP Sys/Babb Pulse Ox Last 24 Hr 97.2 F-99.2 F 63-80 16-20 93-149/47-69 92-100 Discharge Results Procedures and tests throughout hospitalization: Pending Orders 06/28/16 11:01 Red Blood Cells Leuko Red Stat Type and Screen Stat 07/01/16 04:00 Comp Blood Count Auto Diff IN AM Labs on day of discharge: Labs from last 24 hours 06/30/16 06/30/16 06/30/16 10:50 06:47 03:11 WBC 9.5 RBC 3.42 L Hgb 10.0 L Hct 29.8 L MCV 87.1 MCH 29 MCHC 33.6 RDW 14.2 Plt Count 150 MPV 9.8 Neut % (Auto) 67.7 Lymph % (Auto) 19.8 L Boundary % (Auto) 8.9 Eos % (Auto) 1.8 Baso % (Auto) 0.4 Neut # (Auto) 6.4 Lymph # (Auto) 1.9 Boundary # (Auto) 0.8 Eos # (Auto) 0.2 Baso # (Auto) 0.0 Immature Gran % 1.4 Nucleated RBC % 0.0 Immature Gran # 0.13 Nucleated RBCs # 0.00 POC Glucose 97 98 06/29/16 06/29/16 20:54 16:27 WBC RBC Hgb Hct MCV MCH MCHC RDW Plt Count MPV Neut % (Auto) Lymph % (Auto) Boundary % (Auto) Eos % (Auto) Baso % (Auto) Neut # (Auto) Lymph # (Auto) Boundary # (Auto) Eos # (Auto) Baso # (Auto) Immature Gran % Nucleated RBC % Immature Gran # Nucleated RBCs # POC Glucose 108 H 84 DS: Provider Date of admission: 06/27/16 15:24 Primary care physician: . No PCP Attending physician on admission: Hilaria Lai MD Consults: 06/27/16 17:55 Consult to Physician [CONS] Routine Comment: Consulting Provider: Gerry Clement Person Notified: Dr. Clement Date Notified: 06/27/16 Time Notified: 18:05 06/28/16 13:42 Consult to Case Mgmt/Social Srvs [CONS] Routine Reason for Case Mgmt/Social Srvs: Rehab Home Health Equipment Consult Comment: Bedside Commode, CPM, Walker Consult to Occupational Therapy [CONS] Routine Reason for Occupational Therapy: Evaluate and Treat Consult Comment: ADL's Consult to Physical Therapy [CONS] Routine Reason for Physical Therapy: Evaluate and Treat Gait Training Consult Comment: Anterior Hip Precautions 06/30/16 09:49 Consult to Physical Therapy [CONS] Routine Reason for Physical Therapy: Other Consult Comment: Deliver a Standard Walker to room 318 before D/C tomorrow. Pt going home. Discharging clinician: Antonio Bruner MD
[2016-06-30 15:52] VITALS: BP 118/66
--- NOTE | 2016-07-02 07:34 | Physician Query Form ---
CLICK EDIT DOCUMENT TO SELECT QUERY ANSWER --> OK --> SIGN Becca Ascencio RN Clinical Center Machine Operator W) [phone] (f) [phone] [email or web address] PROVIDERS: Make your selection(s) from the choices in EACH section by typing an "x" and enter comments in the comment section. Please use your independent medical judgment in providing your response. This request does not imply that any particular answer is desired or expected. CLINICAL INDICATORS: (Providers should not edit this section) Pt. had total hip arthroplasty. Operative note states estimated blood loss of 700 mL. Based on documentation of "anemia". Pt. transfused with 2 units PRBC's. Based on the above, could you clarify which of the following conditions you are evaluating, treating, and/or monitoring? (X ) Blood loss anemia (X ) acute ( ) chronic ( ) acute on chronic ( ) Acute blood loss anemia on baseline chronic anemia ( ) Acute blood loss anemia as a complication of a procedure ( ) Iron deficiency anemia not associated with blood loss ( ) Dilutional anemia due to IV fluids ( ) Anemia due to chemotherapy ( ) Anemia due to neoplastic disease ( ) Anemia due to chronic kidney disease ( ) Pernicious anemia ( ) Aplastic anemia ( ) Hemolytic anemia ( ) immune ( ) non-immune - please specify cause: ( ) Anemia due to other condition, please specify: ( ) Clinically unable to determine COMMENTS: PLEASE ALSO DOCUMENT RESPONSE IN PROGRESS NOTES AND/OR DISCHARGE SUMMARY Use of terms such as suspected, likely, or probable (associated with a specific diagnosis that is being evaluated, monitored, or treated as if it exists) are acceptable and can be restated in the discharge summary if not ruled out. MTDD
--- NOTE | 2016-07-08 14:28 | Emergency Department Note ---
Jayshree Anaya Mantricia, am scribing for, and in the presence of, Eddie Bernal M.D. 14:46. Gabe Anaya Howard T, M.D., personally performed the services described in this documentation, ascribed by Fermin Martell in my presence, and it is both accurate and complete 455 . Arrival - Arrival Chief Complaint: Extremity Injury Stated Complaint: Right Hip Fracture ED Nursing Triage Note: Transfer from [facility] - Fall this am - right hip fracture Mode of Arrival: Stretcher Limitations: No Limitations Source: Patient - History of Present Illness HPI Narrative: Pt is a 71 y/o white female arriving to ED by EMS with c/o right hip fracture that onset this morning due to a fall. She is a transfer from [facility]. Pt has a PMHx of DM that she treats with diet and HTN. She reports no other complaints. Onset (ago): hour(s) Consistency: constant Severity: mild Severity scale (1-10): 3 Date of Last Menstrual Period: hyster Allergies/Adverse Reactions: Allergies Allergy/AdvReac Type Severity Reaction Status Date / Time Penicillins Allergy RASH Unverified 06/27/16 14:08 Home Medications: Home Medications Medication Instructions Recorded Confirmed Type ALPRAZolam [Alprazolam] 1 mg PO DAILY PRN 06/27/16 06/27/16 History Cetirizine HCl [Cetirizine Tab] 10 mg PO DAILY 06/27/16 06/27/16 History Diazepam Tab [Valium Tab] 2 mg PO Q6H PRN 06/27/16 06/27/16 History HYDROcodone/ACETAMIN 7.5-325 1 tablet PO DAILY PRN 06/27/16 06/27/16 History [[place] 7.5-325] Methocarbamol Tab [Robaxin Tab] 500 mg PO TID PRN 06/27/16 06/27/16 History Propranolol Tab [Inderal Tab] 20 mg PO BID 06/27/16 06/27/16 History Zolpidem Tartrate [Ambien] 10 mg PO BEDTIME 06/27/16 06/27/16 History hydroCHLOROthiazide 25 mg PO QAM 06/27/16 06/27/16 History [Hydrochlorothiazide] Review of System - Review of System 12 point system: reviewed and no additional remarkable complaints except as stated - Review of System Constitutional: Absent: chills, diaphoresis, fever Eyes: Absent: discharge, pain Head/Ears/Nose/Throat: Present: see HPI. Absent: earache Respiratory: Absent: cough, respiratory distress, wheezing Cardiovascular: Absent: chest pain, palpitations Gastrointestinal: Absent: abdominal pain, nausea, vomiting Genitourinary female: Absent: abnormal menses, dysuria Musculoskeletal: Present: other (hip fracture). Absent: arm pain, back pain, leg pain, neck pain Skin: Absent: rash, lesions Neurological: Absent: headache, weakness Psychiatric: Absent: anxiety, depression Medical,Surgical,& Family Hx - Medical History Cardio: History of: Hypertension Neurology: History of: Migraine - Social History Smoking Status: Never smoker Frequency of Alcohol Use: None Type of Drug Use: None Exam Vital Signs: Vital Signs Temperature 97.5 F L 06/27/16 14:09 Pulse Rate 82 06/27/16 14:09 Respiratory Rate 20 06/27/16 14:09 Blood Pressure 133/79 06/27/16 14:09 O2 Sat by Pulse Oximetry 93 L 06/27/16 14:09 - General General appearance: alert, in no apparent distress - Head Head exam: Present: atraumatic, normocephalic, normal inspection - Eye Eye exam: Present: normal appearance, PERRL, EOMI - ENT ENT exam: Present: normal exam, normal oropharynx, mucous membranes moist, TM's normal bilaterally, normal external ear exam - Neck Neck exam: Present: normal inspection, full ROM, trachea midline. Absent: tenderness - Chest Chest inspection: Present: normal inspection, symmetric chest wall rise. Absent : tenderness - Respiratory Respiratory exam: Present: normal lung sounds bilaterally - Cardiovascular Cardiovascular exam: Present: regular rate, normal rhythm, normal heart sounds - Abdominal Exam Abdominal exam: Present: soft. Absent: distention, tenderness, guarding, rebound, normal bowel sounds - Expanded Lower Right Lower Hip/Pelvis exam: Present: tenderness, other (tenderness). Absent: full ROM - Back Exam Back exam: Present: normal inspection, full ROM. Absent: tenderness - Neurological Exam Neurological exam: Present: alert, oriented X3, CN II-XII intact, normal gait - Psychiatric Psychiatric exam: Present: normal affect, normal mood - Skin Skin exam: Present: warm, dry, intact, normal color Course Course Narrative: Medical decision making: Discussed with orthopedic and hospitalist service, orthopedic referred for hospital service admission because of comorbidities. Plan is to operate tomorrow morning with total hip replacement. - Reevaluation(s) Reevaluation #1: Update: Noted chest x-ray report for possible infiltrate however patient has no signs or symptoms during evaluation to suggest an infection so will defer further evaluation and possible treatment to hospitalist admitting service. Results - Diagnostic Findings Procedure: Chest x-ray: report reviewed by me (poss R infiltrate) Disposition Clinical Impression: Closed right hip fracture Case discussed with: patient Disposition: Still a Patient Time of Disposition: 14:58
== END 2016-06-30 15:50 | disposition home health service (06) | DRG 470 ==
LOC: EDUNIT# → EDBD → N.ED 14:04 → SUATTDRO 15:24 → N.EDINP 15:24 → N.3E 17:55
PROVIDERS: ADMIT Pediatrics; ATTEND Internal Medicine